=== PATIENT | male | born 1955 | race Caucasian/White ===

== ENCOUNTER 2021-12-25 20:34 | Inpatient (IN) ==
[2021-12-25] MEDS ORDERED: Azithromycin 500 MG in 0.9 % Sodium Chloride 250 ML IVPB ONE (21:11)
[2021-12-25] MEDS ORDERED: methylPREDNISolone 125 MG/2 ML VIAL IVP ONE (21:11)
[2021-12-25] MEDS ORDERED: Ipratropium/Albuterol Neb 3 ML IH ONE (21:11)
[2021-12-25] MEDS ORDERED: cefTRIAXone 1,000 MG in 0.9 % Sodium Chloride 10 ML IVP ONE (21:11)
[2021-12-25 21:23] LABS: Basophils % 0.4 %; Eosinophils # 0.2 K/mcL (0.0-0.6); Eosinophils % 2.2 %; Hematocrit 34.9 % (37.5-50.1); Hemoglobin 10.7 g/dL (12.9-16.9); Immature Granulocytes % 0.4 % (0-4); Lymphocytes # 1.4 K/mcL (0.6-4.6); Lymphocytes % 12.8 %; Mean Corpuscular HGB Conc 30.7 g/dL (31.6-35.5); Mean Corpuscular Hemoglobin 25.7 pg (28.0-33.3); Mean Corpuscular Volume 83.7 fL (83.0-100.0); Mean Platelet Volume 9.1 fL (9.4-12.4); Monocytes # 1.4 K/mcL (0.0-1.3); Monocytes % 13.3 %; Neutrophils # 7.6 K/mcL (1.6-8.9); Platelet Count 376 K/mcL (140-400); Red Blood Count 4.17 M/mcL (4.19-5.50); Red Cell Distribution Width 15.2 % (11.5-14.5); Segmented Neutrophils % 70.9 %; White Blood Count 10.7 K/mcL (4.3-11.1)
[2021-12-25 21:50] LABS: Alanine Aminotransferase 15 Units/L (7-52); Albumin 3.9 g/dL (3.5-5.7); Albumin/Globulin Ratio 1.3 (1.1-2.2); Alkaline Phosphatase 96 Units/L (34-104); Aspartate Amino Transferase 36 Units/L (13-39); BUN/Creatinine Ratio 12 (6-26); Bilirubin,Direct 0.1 mg/dL (0.0-0.2); Bilirubin,Indirect 0.4 mg/dL (0.0-1.0); Bilirubin,Total 0.5 mg/dL (0.3-1.0); Blood Urea Nitrogen 16 mg/dL (8-23); Calcium 8.9 mg/dL (8.6-10.3); Carbon Dioxide 30 mEq/L (23-29); Chloride 101 mEq/L (98-107); Globulin 2.9 g/dL (2.4-3.5); Glucose 112 mg/dL (70-105); Osmolality,Calculated 286 (280-300); Potassium 5.5 mEq/L (3.5-5.1); Sodium 137 mEq/L (136-145); Total Protein 6.8 g/dL (6.4-8.9); Troponin I < 0.03 ng/mL (< 0.04); eGFR For African Americans > 60 (> 60); eGFR For Non-African Americans 55 (> 60)
[2021-12-25 21:52] LABS: Bilirubin,Urine Negative (Negative); Blood,Urine Negative (Negative); Clarity,Urine Clear (Clear); Color,Urine Light-Yellow (Yellow); Glucose,Urine (UA) Normal (Normal); Ketones,Urine Negative (Negative); Leukocyte Esterase,Urine Negative (Negative); Mucus,Urine Few per lpf (None-Few); Nitrite,Urine Negative (Negative); PH,Urine 6.5 pH Units (5.0-8.0); Protein,Urine 30 mg/dL (Neg-Trace); RBC,Urine 0-3 per hpf (0-3); Specific Gravity,Urine 1.022 (1.010-1.025); Squamous Epithelial Cell,Urine Few per hpf (None-Few); Urobilinogen,Urine Normal (Normal); WBC,Urine 0-3 per hpf (0-3)
[2021-12-25] MEDS ORDERED: 0.9 % Sodium Chloride 1,000 ML IVC ONE (22:56)
[2021-12-26] MEDS ORDERED: Naloxone 0.4 MG/ML INJ IVP PRN (01:41)
[2021-12-26] MEDS ORDERED: Ondansetron 4 MG/2 ML VIAL IVP PRN (01:41)
[2021-12-26] MEDS ORDERED: Melatonin 3 MG TABLET PO PRN (01:41)
[2021-12-26] MEDS ORDERED: Acetaminophen 325 MG TABLET PO PRN (01:41)
[2021-12-26 01:49] LABS: Influenza A PCR Negative (Negative); Influenza B PCR Negative (Negative); Resp. Syncytial Virus PCR Negative (Negative)
[2021-12-26 01:52] LABS: SARS-CoV-2 by PCR (In House) Positive (Negative)
[2021-12-26] MEDS ORDERED: Saliva Stimulant 44.3ml BOTTLE PO PRN (02:05)
[2021-12-26] MEDS ORDERED: Saline Nasal Spray 44 ML BOTTLE NS PRN (02:05)
[2021-12-26 03:10] LABS: Eosinophils % 0.1 %; Hematocrit 35.9 % (37.5-50.1); Hemoglobin 10.5 g/dL (12.9-16.9); Immature Granulocytes % 0.4 % (0-4); Lymphocytes % 13.5 %; Mean Corpuscular HGB Conc 29.2 g/dL (31.6-35.5); Mean Corpuscular Hemoglobin 24.9 pg (28.0-33.3); Mean Corpuscular Volume 85.3 fL (83.0-100.0); Mean Platelet Volume 9.1 fL (9.4-12.4); Monocytes % 3.1 %; Platelet Count 354 K/mcL (140-400); Red Blood Count 4.21 M/mcL (4.19-5.50); Red Cell Distribution Width 15.2 % (11.5-14.5); Segmented Neutrophils % 82.5 %; White Blood Count 10.4 K/mcL (4.3-11.1)
[2021-12-26 03:11] LABS: Basophils % 0.4 %; Lymphocytes # 1.4 K/mcL (0.6-4.6); Monocytes # 0.3 K/mcL (0.0-1.3); Neutrophils # 8.6 K/mcL (1.6-8.9)
[2021-12-26 03:17] LABS: INR 1.1; Prothrombin Time 12.8 Seconds (9.4-12.1)
[2021-12-26 03:20] LABS: Activated Partial Thrombo Time 30.2 Seconds (26.0-36.0); BUN/Creatinine Ratio 13 (6-26); Blood Urea Nitrogen 16 mg/dL (8-23); Calcium 8.5 mg/dL (8.6-10.3); Carbon Dioxide 26 mEq/L (23-29); Chloride 103 mEq/L (98-107); Chol/HDL Ratio 2.6 (0-4.9); Cholesterol 100 mg/dL (< 200); Glucose 241 mg/dL (70-105); HDL Cholesterol 38 mg/dL (40-59); LDL Cholesterol,Calculated 52 mg/dL (< 100); Magnesium 1.7 mg/dL (1.6-2.6); Osmolality,Calculated 293 (280-300); Phosphorous 3.2 mg/dL (2.7-4.5); Potassium 5.5 mEq/L (3.5-5.1); Sodium 137 mEq/L (136-145); Triglycerides 52 mg/dL (< 150); eGFR For African Americans > 60 (> 60); eGFR For Non-African Americans > 60 (> 60)
[2021-12-26] MEDS ORDERED: Ipratropium/Albuterol Neb 3 ML IH SCH (04:00)
[2021-12-26] MEDS: Ipratropium 1 PUFF INHALER IH SCH ×4 (04:05→20:37)
[2021-12-26 04:35] LABS: Alanine Aminotransferase 15 Units/L (7-52); Albumin 3.9 g/dL (3.5-5.7); Albumin/Globulin Ratio 1.4 (1.1-2.2); Alkaline Phosphatase 97 Units/L (34-104); Aspartate Amino Transferase 29 Units/L (13-39); Bilirubin,Total 0.4 mg/dL (0.3-1.0); C-Reactive Protein 34 mg/L (Less than 10); Ferritin 14 ng/mL (20-250); Globulin 2.7 g/dL (2.4-3.5); Lactate Dehydrogenase 231 Units/L (140-271); Total Protein 6.6 g/dL (6.4-8.9)
[2021-12-26] MEDS ORDERED: Remdesivir 200 MG in 0.9 % Sodium Chloride 100 ML IVPB ONE (05:00)
[2021-12-26] MEDS ORDERED: Calcium Gluconate 1gm/50mL 1 GM/50 ML BAG IVPB ONE (05:36)
[2021-12-26] MEDS ORDERED: Furosemide 20 MG/2 ML VIAL IVP ONE (05:36)
[2021-12-26] MEDS ORDERED: *HR* Dextrose 50 % in Water (Vial) 50 ML VIAL IVP ONE (05:36)
[2021-12-26] MEDS: *HR* Heparin 5,000 UNIT/ML VIAL SQ SCH ×3 (05:36→20:56)
[2021-12-26] MEDS ORDERED: Insulin Human Regular 10 UNIT in 0.9 % Sodium Chloride 10 ML IV ONE (05:36)
[2021-12-26] MEDS: levETIRAcetam 250 MG TABLET PO SCH ×2 (06:26→17:28)
[2021-12-26] MEDS ORDERED: Azithromycin 250 MG TABLET PO SCH (09:00)
[2021-12-26] MEDS: Insulin LISPRO 300 UNITS/3 ML VIAL SUBQ SCH ×6 (09:00→17:31)
[2021-12-26] MEDS ORDERED: cefTRIAXone 1,000 MG in 0.9 % Sodium Chloride Mini Bag 100 ML IVPB SCH (09:00)
[2021-12-26] MEDS: Sennosides/Docusate Sodium TABLET PO SCH ×2 (09:03→20:57)
[2021-12-26] MEDS: Cholecalciferol (D-3) 1,000 UNIT (25MCG) TABLET PO SCH (09:03)
[2021-12-26] MEDS: lamoTRIgine 100 MG TABLET PO SCH ×2 (09:03→20:56)
[2021-12-26] MEDS: SODIUM ZIRCONIUM CYCLOSILICATE 5 GM POWD.PACK PO SCH ×3 (09:04→20:55)
[2021-12-26] MEDS: Insulin DETEMIR 100 UNIT/ML X5UNITS SUBQ SCH ×2 (09:04→20:57)
[2021-12-26] MEDS: Multivit/Ca/Min/Fe/FA 1 TAB TABLET PO SCH (09:04)
[2021-12-26] MEDS: polyethylene glycoL 3350 17 GM POWD.PACK PO SCH (09:04)
[2021-12-26] MEDS: Lactobacillus 1 EACH CAP.SPRINK PO SCH ×2 (09:04→20:57)
[2021-12-26] MEDS: Artificial Tears SOLN 15 ML BOTTLE BOTH EYES SCH ×2 (09:05→21:45)
[2021-12-26] MEDS: Budesonide/Formoterol 160/4.5 1 PUFF INH IH SCH ×2 (10:45→20:36)
[2021-12-26] MEDS ORDERED: *HR* OxyCODONE/APAP 5/325 TABLET PO PRN (18:54)
[2021-12-27] MEDS: Ipratropium 1 PUFF INHALER IH SCH ×4 (03:45→20:25)
[2021-12-27] MEDS: Remdesivir 100 MG in 0.9 % Sodium Chloride 100 ML IVPB SCH (03:56)
[2021-12-27 04:32] LABS: % Iron Saturation 5 % (20-55); Iron 25 mcg/dL (65-175); Transferrin 381 mg/dL (203-362)
[2021-12-27 04:33] LABS: Albumin 3.9 g/dL (3.5-5.7); Albumin/Globulin Ratio 1.3 (1.1-2.2); Bilirubin,Total 0.3 mg/dL (0.3-1.0); Calcium 9.4 mg/dL (8.6-10.3); Globulin 2.9 g/dL (2.4-3.5); Total Protein 6.8 g/dL (6.4-8.9)
[2021-12-27] MEDS: levETIRAcetam 250 MG TABLET PO SCH ×2 (04:44→17:35)
[2021-12-27] MEDS: *HR* Heparin 5,000 UNIT/ML VIAL SQ SCH ×3 (04:44→21:49)
[2021-12-27 05:20] LABS: Folate > 22.3 ng/mL (3.0-16.0); Vitamin B12 385 pg/mL (250-1100)
[2021-12-27] MEDS: Aspirin Enteric Coated 81 MG Tablet PO SCH (08:55)
[2021-12-27] MEDS: polyethylene glycoL 3350 17 GM POWD.PACK PO SCH (08:55)
[2021-12-27] MEDS: Cholecalciferol (D-3) 1,000 UNIT (25MCG) TABLET PO SCH (08:55)
[2021-12-27] MEDS: Sennosides/Docusate Sodium TABLET PO SCH ×2 (08:55→21:48)
[2021-12-27] MEDS: Multivit/Ca/Min/Fe/FA 1 TAB TABLET PO SCH (08:55)
[2021-12-27] MEDS: lamoTRIgine 100 MG TABLET PO SCH ×2 (08:56→21:49)
[2021-12-27] MEDS: Lactobacillus 1 EACH CAP.SPRINK PO SCH ×2 (08:56→21:47)
[2021-12-27] MEDS: Budesonide/Formoterol 160/4.5 1 PUFF INH IH SCH ×2 (10:59→20:26)
[2021-12-27] MEDS: Insulin LISPRO 300 UNITS/3 ML VIAL SUBQ SCH ×6 (11:13→17:33)
[2021-12-27] MEDS: Insulin DETEMIR 100 UNIT/ML X5UNITS SUBQ SCH ×2 (11:20→22:17)
[2021-12-27] MEDS: Artificial Tears SOLN 15 ML BOTTLE BOTH EYES SCH ×2 (11:41→21:57)
[2021-12-27] MEDS: *HR* HYDROcodone/Acet 5/325 mg TABLET PO PRN (21:55)
[2021-12-28] MEDS: Ipratropium 1 PUFF INHALER IH SCH ×2 (04:13→10:06)
[2021-12-28] MEDS: Remdesivir 100 MG in 0.9 % Sodium Chloride 100 ML IVPB SCH (06:13)
[2021-12-28 06:14] LABS: Phosphorous 4.6 mg/dL (2.7-4.5)
[2021-12-28] MEDS: *HR* Heparin 5,000 UNIT/ML VIAL SQ SCH (06:14)
[2021-12-28] MEDS: levETIRAcetam 250 MG TABLET PO SCH (06:15)
[2021-12-28] MEDS: *HR* HYDROcodone/Acet 5/325 mg TABLET PO PRN (06:20)
[2021-12-28 06:39] VITALS: O2SAT 94
[2021-12-28] MEDS: Aspirin Enteric Coated 81 MG Tablet PO SCH (08:26)
[2021-12-28] MEDS: Cholecalciferol (D-3) 1,000 UNIT (25MCG) TABLET PO SCH (08:26)
[2021-12-28] MEDS: polyethylene glycoL 3350 17 GM POWD.PACK PO SCH (08:26)
[2021-12-28] MEDS: Multivit/Ca/Min/Fe/FA 1 TAB TABLET PO SCH (08:27)
[2021-12-28] MEDS: Lactobacillus 1 EACH CAP.SPRINK PO SCH (08:27)
[2021-12-28] MEDS: Sennosides/Docusate Sodium TABLET PO SCH (08:27)
[2021-12-28] MEDS: lamoTRIgine 100 MG TABLET PO SCH (08:27)
[2021-12-28] MEDS: Insulin LISPRO 300 UNITS/3 ML VIAL SUBQ SCH ×4 (08:28→12:05)
[2021-12-28] MEDS: Insulin DETEMIR 100 UNIT/ML X5UNITS SUBQ SCH (08:31)
[2021-12-28] MEDS: Artificial Tears SOLN 15 ML BOTTLE BOTH EYES SCH (08:36)
[2021-12-28] MEDS: Budesonide/Formoterol 160/4.5 1 PUFF INH IH SCH (10:06)
[2021-12-28 11:16] LABS: Albumin 3.7 g/dL (3.5-5.7); Albumin/Globulin Ratio 1.4 (1.1-2.2); Bilirubin,Total 0.3 mg/dL (0.3-1.0); Calcium 8.8 mg/dL (8.6-10.3); Globulin 2.7 g/dL (2.4-3.5); Potassium 4.2 mEq/L (3.5-5.1); Total Protein 6.4 g/dL (6.4-8.9)
[2021-12-28 11:59] VITALS: BP 146/71; PULSE 94; TEMP 98.8
== END 2021-12-28 14:58 | disposition home health service (06) | DRG 871 ==
LOC: 3ANU 20:34 → EMEROOARM 20:34 → SUATTDRO 12-26 01:13 → 3ANU 12-26 02:28
PROVIDERS: ADMIT Internal Medicine; ATTEND Internal Medicine